=== PATIENT | female | born 1990 | race Caucasian/White ===

== ENCOUNTER 2018-10-18 07:42 | Emergency (ER) | payer OTHER ==
[~2018-10-18] VITALS: Ht 165.1 cm; Wt 64.0 kg
[~2018-10-18 07:42] MED LIST: ANT12.5 PO; EXCEDRIN1 TAB PO; FIORICET1 TAB PO; LEXAPRO10 MG PO; MEDDP PO; PRE10 PO; PREDNISONE2.5 MG PO; PREDNISONE5 MG PO
[2018-10-18 09:46] VITALS: BP 110/64
== END 2018-10-18 09:46 | disposition home or self-care (01) ==
LOC: ED 07:42
DX: J20.8 Acute bronchitis due to other specified organisms (principal)
CPT/HCPCS: Q0092

== ENCOUNTER 2018-12-22 14:27 | Emergency (ER) | payer OTHER ==
[~2018-12-22] VITALS: Ht 165.1 cm; Wt 64.0 kg
[2018-12-22 14:41] VITALS: Ht 165.1 cm; Wt 64.0 kg
[2018-12-22 15:53] LABS: BASOPHIL % 0.7 % (0-2); PLATELET COUNT 269 x10^3mcL (130-400); RED CELL DISTRIBUTION WIDTH 13.5 % (11.5-14.5)
[2018-12-22 15:57] LABS: CALCIUM 8.6 mg/dL (8.5-10.1); CARBON DIOXIDE 25.6 mmol/L (21-32); CHLORIDE SERUM 106 mmol/L (98-107); CREATININE SERUM 0.7 mg/dL (0.6-1.0); GFR1 > 60 mL/min; GLUCOSE SERUM 86 mg/dL (74-106); SODIUM SERUM 142 mmol/L (136-145)
[2018-12-22 16:03] LABS: ALBUMIN 4.2 g/dL (3.4-5.0); ALKALINE PHOSPHATASE 42 U/L (46-116); ALT/SGPT 30 U/L (14-59); AST/SGOT 23 U/L (15-37); BILIRUBIN TOTAL 0.31 mg/dL (0.20-1.00); LIPASE 99 IU/L (73-393); TOTAL PROTEIN, SERUM 7.7 g/dL (6.4-8.2)
[2018-12-22 16:21] LABS: AMPHETAMINE QUAL UR NONE DETECTED (See below)
[2018-12-22 18:03] LABS: microscopic required? YES; urine erythrocyte NEGATIVE (NEGATIVE)
[2018-12-22 18:27] VITALS: BP 111/68
== END 2018-12-22 18:42 | disposition home or self-care (01) ==
LOC: ED 14:27
PROVIDERS: Emergency Medicine
DX: R11.2 Nausea with vomiting, unspecified (principal); R19.7 Diarrhea, unspecified; E86.0 Dehydration; N39.0 Urinary tract infection, site not specified; R51 Headache; R10.9 Unspecified abdominal pain
CPT/HCPCS: G0480; J1885; J2405; J7030

== ENCOUNTER 2019-06-13 15:13 | Emergency (ER) | payer OTHER ==
[~2019-06-13] VITALS: Ht 165.1 cm; Wt 64.9 kg
[2019-06-13 15:41] VITALS: BP 95/58; Ht 165.1 cm; Wt 64.9 kg
== END 2019-06-13 19:10 | disposition left against medical advice (07) ==
LOC: ED 15:13
DX: Z53.21 Procedure and treatment not carried out due to patient leaving prior to being seen by health care provider (principal)

== ENCOUNTER 2019-08-19 18:35 | Emergency (ER) | payer OTHER ==
[~2019-08-19] VITALS: Ht 165.1 cm; Wt 66.7 kg
[2019-08-19 19:13] VITALS: BP 105/39; Ht 165.1 cm; Wt 66.7 kg
== END 2019-08-19 22:34 | disposition left against medical advice (07) ==
LOC: ED 18:35
DX: Z53.21 Procedure and treatment not carried out due to patient leaving prior to being seen by health care provider (principal)